=== PATIENT | male | born 1970 | race Caucasian/White ===

== ENCOUNTER → 2017-12-12 | Outpatient (CLI) | payer MEDICARE, OTHER ==
[~2017-12-12] VITALS: Ht 180.3 cm; Wt 85.3 kg
[2017-12-12] VITALS (7 sets, daily range): BP systolic 111–166; BP diastolic 57–78
[~2017-12-12] MED LIST: ACET500T94 PO; ACETAMINOPHEN 325 MG TABLET PO NR; AMIT10TA6 PO; AMLO10TA82 PO; CETI10TA17 PO; CYCL10TA9 PO; DIPH1TAB PO; ENAL20TA PO; FUROSEMIDE 40 MG/4 ML INJ (LASIX) IV NR; GBPN300C PO; HCT25T PO; HYDR1CAP2 PO; INSASP10V SC; INSU100C4 SQ; LOSA50TA6 PO; LSRT50T PO; MEPE50TA PO; MNTL10T PO; NS IV 500 ML 500 ML IV SCH; OMEP20TA2 PO; PREG20SO PO; QUIN324C PO; TRAM50TA2 PO; XYREM; diphenhydrAMINE 25 MG TAB (BENADRYL) PO NR; hydrALAZINE (APRESOLINE) 25 MG TAB PO SCH
[2017-12-12] MEDS: NS IV SCH ×2 (11:58→16:03)
[2017-12-12] MEDS: NAFCILLIN IV SCH ×2 (11:58→16:03)
== END ==
LOC: 4THo 09:09
PROVIDERS: ATTEND Nurse Practitioner Family
DX: D64.9 Anemia, unspecified (principal); N18.6 End stage renal disease; I38 Endocarditis, valve unspecified
CPT/HCPCS: 82962; 86850; 86900; 86901; 86920